=== PATIENT | female | born 1935 | race Caucasian/White ===

== ENCOUNTER 2020-11-11 10:57 | Inpatient (IN) | payer MEDICARE, OTHER ==
[~2020-11-11] VITALS: Ht 165.1 cm; Wt 47.7 kg
[~2020-11-11 10:57] MED LIST: DILT120C64 PO; GABA300C10 PO; LEVO50TA7 PO; LISI40TA11 PO; METO25TA5 PO; OMEP20CA74 OR; TRAM50TA2 PO
[2020-11-11] MEDS ORDERED: SODIUM CHLORIDE 0.9% 500 ML IVB ONE (11:15)
[2020-11-11 11:23] LABS: Basophils # (auto) 0.1 10 ^3/uL (0-0.2); Basophils % (auto) 0.4 % (0.0-2.0); Eosinophils # (auto) 0.1 10 ^3/uL (0-0.8); Eosinophils % (auto) 0.4 % (0.0-7.0); Hematocrit 41.5 % (36.0-46.0); Lymphocytes # (auto) 1.3 10 ^3/uL (0.4-5.4); Lymphocytes % (auto) 7.6 % (10.0-50.0); Mean Corpuscular Hemoglobin 31.1 pg (28.0-32.0); Mean Corpuscular Hgb Conc. 33.7 g/dL (32.0-36.0); Mean Corpuscular Volume 92.4 fL (80.0-100.0); Monocytes # (auto) 1.3 10 ^3/uL (0-1.3); Monocytes % (auto) 7.7 % (0.0-12.0); Neutrophils # (auto) 14.3 10 ^3/uL (1.6-8.6); Neutrophils % (auto) 83.9 % (37.0-80.0); Red Blood Cells 4.49 10^6/uL (4.0-5.20); Red Cell Distribution Width 14.4 % (11.8-14.3); White Blood Cell 17.1 10^3/uL (4.4-10.8)
[2020-11-11 11:41] LABS: Albumin 1.7 g/dL (3.4-5.0); Calcium 7.6 mg/dL (8.5-10.1); Magnesium 2.3 mg/dL (1.6-2.6); Potassium 3.1 mmol/L (3.5-5.1)
[2020-11-11 11:42] LABS: Lactic Acid w/Reflex 2.5 mmol/L (0.4-2.0)
[2020-11-11 11:44] LABS: BUN/Creatinine Ratio 20.6; Bilirubin, Total 3.2 mg/dL (0.2-1.0); Total Protein 5.5 g/dL (6.4-8.2)
[2020-11-11] MEDS ORDERED: POTASSIUM CHL 20MEQ/100ML 100 ML IV ONE (13:00)
[2020-11-11] MEDS ORDERED: metroNIDAZOLE 500MG/100ML 100 ML IV ONE (14:15)
[2020-11-11] MEDS ORDERED: SODIUM CHLORIDE 0.9% 500 ML IV ONE (14:15)
[2020-11-11 17:52] LABS: Urine Bacteria NONE SEEN /hpf (None Seen); Urine Blood Negative /uL (Negative); Urine Hyaline Cast MOD /lpf (0 - 2); Urine Specific Gravity 1.015 (1.001-1.035); Urine WBC 4 /hpf (0 - 5)
[2020-11-11] MEDS ORDERED: NITROGLYCERIN 0.4 MG SL TAB SL PRN (18:15)
[2020-11-11] MEDS ORDERED: MORPHINE SULFATE INJECTION 2 MG/ML SYRG IV PRN ×2 (18:15)
[2020-11-11] MEDS ORDERED: ONDANSETRON HCL 4 MG/2 ML VIAL IV PRN (18:15)
[2020-11-11] MEDS ORDERED: POTASSIUM EFFERVESENT TAB 25 MEQ PO ONE (18:15)
[2020-11-11] MEDS ORDERED: ACETAMINOPHEN 325 MG TAB PO PRN (18:15)
[2020-11-11] MEDS ORDERED: LORazepam 2MG/ML-1ML VIAL IV PRN (20:45)
[2020-11-11 21:07] LABS: Cholesterol < 50 mg/dL (< 200); HDL Cholesterol 11 mg/dL (40-59); LDL Cholesterol 29 mg/dL (< 100); Triglycerides 83 mg/dL (< 150)
[2020-11-11] MEDS: SODIUM CHLORIDE 0.9% 1,000 ML IV SCH (22:57)
[2020-11-12] MEDS: SODIUM CHLORIDE 0.9% 1,000 ML IV SCH ×3 (06:07→18:24)
[2020-11-12 07:13] LABS: Basophils # (auto) 0.1 10 ^3/uL (0-0.2); Eosinophils # (auto) 0.2 10 ^3/uL (0-0.8); White Blood Cell 14.7 10^3/uL (4.4-10.8)
[2020-11-12 07:15] LABS: Basophils % (auto) 0.6 % (0.0-2.0); Eosinophils % (auto) 1.6 % (0.0-7.0); Hematocrit 43.6 % (36.0-46.0); Hemoglobin 14.6 g/dL (12.2-16.2); Lymphocytes % (auto) 6.6 % (10.0-50.0); Mean Corpuscular Hemoglobin 31.9 pg (28.0-32.0); Mean Corpuscular Hgb Conc. 33.5 g/dL (32.0-36.0); Monocytes # (auto) 1.1 10 ^3/uL (0-1.3); Monocytes % (auto) 7.6 % (0.0-12.0); Neutrophils # (auto) 12.3 10 ^3/uL (1.6-8.6); Neutrophils % (auto) 83.6 % (37.0-80.0); Red Blood Cells 4.59 10^6/uL (4.0-5.20); Red Cell Distribution Width 15.1 % (11.8-14.3)
[2020-11-12 07:25] LABS: Calcium 7.5 mg/dL (8.5-10.1); Potassium 4.3 mmol/L (3.5-5.1)
[2020-11-12 07:30] LABS: Albumin 1.8 g/dL (3.4-5.0); BUN/Creatinine Ratio 22.9; Bilirubin, Total 3.2 mg/dL (0.2-1.0); Total Protein 5.8 g/dL (6.4-8.2)
[2020-11-12] MEDS: cefTRIAXone 1GM/50ML D5W 50 ML IV SCH (09:21)
[2020-11-12 10:12] LABS: INR 1.4 (0.9-1.15)
[2020-11-12] MEDS: metroNIDAZOLE 500MG/100ML 100 ML IV SCH ×2 (12:01→21:26)
[2020-11-12] MEDS: FOLIC ACID 1 MG, MULTIPLE VITAMIN 10 ML, MAGNESIUM SULF SDV 50% 8 MEQ, THIAMINE INJ 100... INJ SCH ×5 (12:30)
[2020-11-13] VITALS (7 sets, daily range): BP systolic 100–158; BP diastolic 64–86
[2020-11-13] MEDS: SODIUM CHLORIDE 0.9% 1,000 ML IV SCH ×3 (02:15→18:01)
[2020-11-13] MEDS: metroNIDAZOLE 500MG/100ML 100 ML IV SCH ×3 (05:15→20:11)
[2020-11-13 09:22] LABS: Basophils # (auto) 0.1 10 ^3/uL (0-0.2); Basophils % (auto) 0.5 % (0.0-2.0); Eosinophils # (auto) 0.2 10 ^3/uL (0-0.8); Eosinophils % (auto) 1.1 % (0.0-7.0); Hematocrit 43.2 % (36.0-46.0); Hemoglobin 14.5 g/dL (12.2-16.2); Lymphocytes # (auto) 0.9 10 ^3/uL (0.4-5.4); Lymphocytes % (auto) 6.2 % (10.0-50.0); Mean Corpuscular Hemoglobin 31.8 pg (28.0-32.0); Mean Corpuscular Hgb Conc. 33.6 g/dL (32.0-36.0); Mean Corpuscular Volume 94.6 fL (80.0-100.0); Monocytes # (auto) 0.8 10 ^3/uL (0-1.3); Monocytes % (auto) 5.6 % (0.0-12.0); Neutrophils % (auto) 86.6 % (37.0-80.0); Nucleated Red Blood Cells % 0.2 %; Red Blood Cells 4.57 10^6/uL (4.0-5.20); Red Cell Distribution Width 15.4 % (11.8-14.3)
[2020-11-13] MEDS: cefTRIAXone 1GM/50ML D5W 50 ML IV SCH (09:25)
[2020-11-13 11:55] LABS: Albumin 1.7 g/dL (3.4-5.0); Bilirubin, Total 2.4 mg/dL (0.2-1.0); Total Protein 5.9 g/dL (6.4-8.2)
[2020-11-13 12:14] LABS: Potassium 4.2 mmol/L (3.5-5.1)
[2020-11-13 12:15] LABS: Calcium 7.8 mg/dL (8.5-10.1)
[2020-11-13] MEDS: FOLIC ACID 1 MG, MULTIPLE VITAMIN 10 ML, MAGNESIUM SULF SDV 50% 8 MEQ, THIAMINE INJ 100... INJ SCH ×5 (13:15)
[2020-11-13] MEDS ORDERED: SPIR25TA PO (17:15)
[2020-11-14] MEDS: metroNIDAZOLE 500MG/100ML 100 ML IV SCH ×2 (02:42→12:21)
[2020-11-14] MEDS: SODIUM CHLORIDE 0.9% 1,000 ML IV SCH (03:21)
[2020-11-14 05:14] VITALS: BP 110/55
[2020-11-14 09:00] VITALS: BP 125/82
[2020-11-14 09:22] LABS: Hepatitis B Surface Antibody Negative
[2020-11-14 09:51] LABS: Hepatitis A Total Antibody Positive
[2020-11-14] MEDS: cefTRIAXone 1GM/50ML D5W 50 ML IV SCH (11:10)
[2020-11-14 13:00] VITALS: BP 116/73
[2020-11-14] MEDS: FOLIC ACID 1 MG, MULTIPLE VITAMIN 10 ML, MAGNESIUM SULF SDV 50% 8 MEQ, THIAMINE INJ 100... INJ SCH ×5 (13:45)
[2020-11-14 14:34] LABS: Hepatitis B Core Total AB Negative; Hepatitis B Surface Antigen Negative (Negative)
[2020-11-14 14:35] LABS: Hepatitis C Antibody Negative (Negative)
[2020-11-14 15:12] VITALS: BP 116/73
== END 2020-11-14 16:50 | disposition hospice, home (50) | DRG 433 ==
LOC: EDUNIT# 10:57 → EDBD 10:57 → ER 10:57 → TELE 18:02 → TELE-WESTW 11-12 22:45
PROVIDERS: ADMIT Internal Medicine; ATTEND Internal Medicine
DX: K70.30 Alcoholic cirrhosis of liver without ascites (principal); K76.6 Portal hypertension; N39.0 Urinary tract infection, site not specified; N17.9 Acute kidney failure, unspecified; I13.0 Hypertensive heart and chronic kidney disease with heart failure and stage 1 through stage 4 chronic kidney disease, or unspecified chronic kidney disease; E87.6 Hypokalemia; G25.2 Other specified forms of tremor; E03.9 Hypothyroidism, unspecified; I50.9 Heart failure, unspecified; Z20.822 Contact with and (suspected) exposure to COVID-19; F17.200 Nicotine dependence, unspecified, uncomplicated; I48.91 Unspecified atrial fibrillation; N18.30 Chronic kidney disease, stage 3 unspecified; Z88.0 Allergy status to penicillin; Z88.8 Allergy status to other drugs, medicaments and biological substances; Z90.710 Acquired absence of both cervix and uterus; B96.20 Unspecified Escherichia coli [E. coli] as the cause of diseases classified elsewhere; F10.10 Alcohol abuse, uncomplicated
CPT/HCPCS: 36415; 70450; 70551; 71045; 74176; 78226; 80053; 80061; 81001; 83605; 83735; 85025; 85610; 86704; 86706; 86708; 86803; 87040; 87081; 87086; 87088; 87186; 87340; 87426; 93005; 93306; 93886; 95819; 96361; 96365; 97163; G0378; J0696; J3480; J3490